=== PATIENT | male | born 1955 | race Caucasian/White ===

== ENCOUNTER 2016-06-28 13:06 | Inpatient (IN) | payer MEDICARE, MEDICAID ==
[~2016-06-28] VITALS: Ht 165.1 cm; Wt 79.8 kg
[~2016-06-28 13:06] MED LIST: ASPI325T2 PO; ATOR40TA70 PO; CALC667C PO; GABA-531 PO; INSLAN SQ; SEVE800T8 PO; ZOLP5TAB7 PO
[2016-06-28] MEDS ORDERED: ONDANSETRON HCL 4MG/2ML VIAL IV STA (15:01)
[2016-06-28] MEDS ORDERED: MORPHINE SULFATE 4 MG/ML CPJ (NOT FOR IM USE) IV STA (15:01)
[2016-06-28] MEDS ORDERED: SODIUM CHLORIDE 0.9% 1,000 ML IV ONE (15:01)
[2016-06-28 15:26] LABS: BASOPHILS % 0.6 % (0.0-2.0); HEMATOCRIT. 30.2 % (42.0-52.0); HEMOGLOBIN. 10.1 g/dL (14.0-18.0); LYMPHOCYTES % 20.8 % (20.0-50.0); MEAN CORPUSCULAR HEMOGLOBIN 31.4 pg (28.0-32.0); MEAN CORPUSCULAR HGB CONC 33.4 g/dL (31.0-37.0); MEAN CORPUSCULAR VOLUME 93.9 fL (80.0-94.0); MEAN PLATELET VOLUME 11.2 fl (7.4-10.4); MONOCYTES % 8.3 % (2.0-8.0); NEUTROPHILS % 69.3 % (40.0-76.0); PLATELET 69 x1000/uL (130-400); RED BLOOD CELL COUNT 3.22 mill/uL (4.7-6.1); RED CELL DISTRIBUTION WIDTH 19.4 % (11.6-14.6); WHITE BLOOD COUNT 6.6 x1000/uL (4.5-11.0)
[2016-06-28 15:32] LABS: INR 1.3; PARTIAL THROMBOPLASTIN TIME 29.9 sec (24.0-34.0); PROTHROMBIN TIME 13.9 sec
[2016-06-28 15:39] LABS: ALANINE AMINOTRANSFERASE 43 IU/L (13-61); ALBUMIN 3.7 g/dL (3.4-5.0); ANION GAP 17; CALCIUM 7.6 mg/dL (8.5-10.1); CARBON DIOXIDE 28 mEq/L (21-32); CHLORIDE 90 mEq/L (98-107); INDEX HEMOLYSI 1 (1-3); INDEX ICTERIC 1 (1-4); INDEX LIPEMIC 1 (1-3); LIPASE 280 IU/L (73-393); TROPONIN I 0.03 ng/mL (0.00-0.04); UREA NITROGEN BLOOD 43 mg/dL (7-21); eGFR 7 mL/min (>60)
[2016-06-28] MEDS ORDERED: ENOXAPARIN 40MG/0.4ML SYR SUBCUT SCH (17:45)
[2016-06-28] MEDS ORDERED: ONDANSETRON HCL 4MG/2ML VIAL IV PRN (17:45)
[2016-06-28] MEDS ORDERED: ACETAMINOPHEN 325MG TABLET PO PRN (17:45)
[2016-06-28] MEDS ORDERED: MORPHINE SULFATE 2 MG/ML CPJ (NOT FOR IM USE) IV PRN (17:45)
[2016-06-28] MEDS ORDERED: ZOLPIDEM TARTRATE 5MG TABLET PO PRN (17:45)
[2016-06-28] MEDS: CLONIDINE 0.1MG TABLET PO PRN (23:08)
[2016-06-29] VITALS (7 sets, daily range): BP systolic 124–183; BP diastolic 71–92
[2016-06-29 07:10] LABS: BASOPHILS % 0.9 % (0.0-2.0); EOSINOPHILS % 2.1 % (0.0-5.0); HEMATOCRIT. 27.7 % (42.0-52.0); HEMOGLOBIN. 9.3 g/dL (14.0-18.0); LYMPHOCYTES % 30.7 % (20.0-50.0); MEAN CORPUSCULAR HEMOGLOBIN 31.6 pg (28.0-32.0); MEAN CORPUSCULAR HGB CONC 33.7 g/dL (31.0-37.0); MEAN CORPUSCULAR VOLUME 93.8 fL (80.0-94.0); MEAN PLATELET VOLUME 12.1 fl (7.4-10.4); MONOCYTES % 8.1 % (2.0-8.0); NEUTROPHILS % 58.2 % (40.0-76.0); PLATELET 63 x1000/uL (130-400); RED BLOOD CELL COUNT 2.96 mill/uL (4.7-6.1); RED CELL DISTRIBUTION WIDTH 19.8 % (11.6-14.6); WHITE BLOOD COUNT 4.4 x1000/uL (4.5-11.0)
[2016-06-29 07:44] LABS: CALCIUM 7.2 mg/dL (8.5-10.1); MAGNESIUM 2.6 mg/dL (1.8-2.4); PHOSPHORUS 6.2 mg/dL (2.5-4.9); TROPONIN I 0.03 ng/mL (0.00-0.04)
[2016-06-29] MEDS: CLONIDINE 0.1MG TABLET PO PRN (09:01)
[2016-06-29] MEDS: AMLODIPINE 10MG TABLET PO SCH (11:22)
[2016-06-29] MEDS ORDERED: CLOP75TA33 PO (11:27)
[2016-06-29] MEDS: SEVELAMER CARBONATE 800 MG TABLET PO SCH ×2 (12:46→16:57)
[2016-06-29] MEDS ORDERED: ASPIRIN 81MG EC TABLET PO SCH (13:00)
[2016-06-29] MEDS ORDERED: GABAPENTIN 300MG CAPSULE PO SCH (21:00)
[2016-06-29] MEDS ORDERED: ATORVASTATIN CALCIUM 40MG TABLET PO SCH (21:00)
[2016-06-29] MEDS ORDERED: ZOLPIDEM TARTRATE 5MG TABLET PO PRN (21:00)
[2016-06-30] VITALS: BP 133/82
[2016-06-30 04:00] VITALS: BP 133/86
[2016-06-30 06:18] LABS: EOSINOPHILS % 1.7 % (0.0-5.0); HEMATOCRIT. 30.4 % (42.0-52.0); HEMOGLOBIN. 9.9 g/dL (14.0-18.0); LYMPHOCYTES % 28.6 % (20.0-50.0); MEAN CORPUSCULAR HEMOGLOBIN 30.5 pg (28.0-32.0); MEAN CORPUSCULAR HGB CONC 32.5 g/dL (31.0-37.0); MEAN CORPUSCULAR VOLUME 93.9 fL (80.0-94.0); MEAN PLATELET VOLUME 11.4 fl (7.4-10.4); MONOCYTES % 7.9 % (2.0-8.0); NEUTROPHILS % 60.8 % (40.0-76.0); PLATELET 63 x1000/uL (130-400); RED BLOOD CELL COUNT 3.24 mill/uL (4.7-6.1); RED CELL DISTRIBUTION WIDTH 20.4 % (11.6-14.6); WHITE BLOOD COUNT 4.8 x1000/uL (4.5-11.0)
[2016-06-30] MEDS ORDERED: DEXTROSE 50% WATER 50ML SYRINGE IV PRN (07:15)
[2016-06-30] MEDS: BLOOD SUGAR DIAGNOSTIC STRIP TEST SCH ×2 (07:20→12:31)
[2016-06-30] MEDS: INSULIN LISPRO 100 UNITS/ML SUBCUT SCH ×2 (07:21→12:31)
[2016-06-30] MEDS: SEVELAMER CARBONATE 800 MG TABLET PO SCH ×2 (07:24→12:31)
[2016-06-30 08:00] VITALS: BP 150/93
[2016-06-30 08:23] LABS: CALCIUM 7.7 mg/dL (8.5-10.1); CREATINE KINASE MB FRACTION 1.5 ng/mL (0.5-3.6); MAGNESIUM 2.5 mg/dL (1.8-2.4); TROPONIN I 0.03 ng/mL (0.00-0.04)
[2016-06-30 08:26] LABS: THYROID STIMULATING HORMONE 4.5 uIU/mL (0.36-3.74)
[2016-06-30] MEDS: AMLODIPINE 10MG TABLET PO SCH (09:06)
[2016-06-30 11:43] VITALS: BP 150/78
[2016-06-30 12:07] LABS: ALBUMIN 3.3 g/dL (3.4-5.0); BILIRUBIN DIRECT 0.8 mg/dL (0.0-0.2)
[2016-06-30 12:50] VITALS: BP 150/78
== END 2016-06-30 13:25 | disposition home or self-care (01) | DRG 438 ==
LOC: ER 13:53 → 8WST 17:44
PROVIDERS: ADMIT Internal Medicine Nephrology; ATTEND Internal Medicine Nephrology
PROC: 5A1D00Z (ICD-10-PCS; principal; 2016-06-29)
DX: K85.90 Acute pancreatitis without necrosis or infection, unspecified (principal); N18.6 End stage renal disease; I13.2 Hypertensive heart and chronic kidney disease with heart failure and with stage 5 chronic kidney disease, or end stage renal disease; R18.8 Other ascites; Z99.2 Dependence on renal dialysis; E11.22 Type 2 diabetes mellitus with diabetic chronic kidney disease; D69.6 Thrombocytopenia, unspecified; D63.1 Anemia in chronic kidney disease; E11.319 Type 2 diabetes mellitus with unspecified diabetic retinopathy without macular edema; E11.42 Type 2 diabetes mellitus with diabetic polyneuropathy; K52.9 Noninfective gastroenteritis and colitis, unspecified; E78.00 Pure hypercholesterolemia, unspecified; E78.5 Hyperlipidemia, unspecified; E83.39 Other disorders of phosphorus metabolism; I25.10 Atherosclerotic heart disease of native coronary artery without angina pectoris; I25.5 Ischemic cardiomyopathy; R09.89 Other specified symptoms and signs involving the circulatory and respiratory systems; I45.10 Unspecified right bundle-branch block; I50.9 Heart failure, unspecified; N32.89 Other specified disorders of bladder; N40.0 Benign prostatic hyperplasia without lower urinary tract symptoms; Z79.82 Long term (current) use of aspirin; Z79.899 Other long term (current) drug therapy; I25.2 Old myocardial infarction; Z87.891 Personal history of nicotine dependence; Z95.5 Presence of coronary angioplasty implant and graft; Z98.890 Other specified postprocedural states
CPT/HCPCS: 36415; 71010; 74176; 76705; 80048; 80053; 80061; 80076; 82550; 82553; 82962; 83036; 83690; 83735; 84100; 84443; 84484; 85025; 85379; 85610; 85730; 86850; 86900; 87040; 93005; 93970; 96361; 96374; 96375; 99285; J1815; J2270; J2405; J7030

== ENCOUNTER 2016-07-03 10:42 | Emergency (ER) | payer MEDICARE, MEDICAID ==
[~2016-07-03] VITALS: Ht 167.6 cm; Wt 84.0 kg
[~2016-07-03 10:42] MED LIST changes: -ASPI325T2 PO; +CLOP75TA33 PO; -ZOLP5TAB7 PO; +ZOLP5TAB8 PO
[2016-07-03] MEDS ORDERED: BACITRACIN ZINC OINT UDPKT TOP ONE (11:45)
[2016-07-03] MEDS ORDERED: CEPHALEXIN 500MG CAPSULE PO ONE (11:45)
[2016-07-03 12:12] VITALS: BP 171/77
== END 2016-07-03 12:15 | disposition home or self-care (01) ==
LOC: ER 11:30
DX: S90.822A Blister (nonthermal), left foot, initial encounter (principal); S90.821A Blister (nonthermal), right foot, initial encounter; E11.9 Type 2 diabetes mellitus without complications; I51.9 Heart disease, unspecified; I13.10 Hypertensive heart and chronic kidney disease without heart failure, with stage 1 through stage 4 chronic kidney disease, or unspecified chronic kidney disease; N18.9 Chronic kidney disease, unspecified; Z79.4 Long term (current) use of insulin; Z79.82 Long term (current) use of aspirin; Z79.899 Other long term (current) drug therapy; Z99.2 Dependence on renal dialysis; X58.XXXA Exposure to other specified factors, initial encounter; Y93.89 Activity, other specified; Y92.89 Other specified places as the place of occurrence of the external cause; Y99.8 Other external cause status
CPT/HCPCS: 99283

== ENCOUNTER 2016-07-25 05:05 | Emergency (ER) | payer MEDICARE, MEDICAID ==
[~2016-07-25] VITALS: Ht 172.7 cm; Wt 84.0 kg
[2016-07-25] MEDS ORDERED: COCAINE 4% TOPICAL SOLN 4ML TOP ONE (07:00)
[2016-07-25] MEDS ORDERED: SODIUM CHLORIDE 0.9% IV ONE (07:00)
[2016-07-25] MEDS ORDERED: DESMOPRESSIN ACETATE IV ONE (07:00)
[2016-07-25] MEDS ORDERED: SILVER NITRATE APPLICATOR STICK TOP ONE (07:00)
[2016-07-25 07:10] LABS: EOSINOPHILS % 1.1 % (0.0-5.0); HEMOGLOBIN. 10.5 g/dL (14.0-18.0); LYMPHOCYTES % 15.9 % (20.0-50.0); MEAN CORPUSCULAR HEMOGLOBIN 29.5 pg (28.0-32.0); MEAN CORPUSCULAR VOLUME 89.5 fL (80.0-94.0); MEAN PLATELET VOLUME 11.3 fl (7.4-10.4); MONOCYTES % 9.2 % (2.0-8.0); NEUTROPHILS % 72.8 % (40.0-76.0); PLATELET 94 x1000/uL (130-400); RED BLOOD CELL COUNT 3.57 mill/uL (4.7-6.1); RED CELL DISTRIBUTION WIDTH 19.9 % (11.6-14.6)
[2016-07-25 07:16] LABS: INR 1.4; PARTIAL THROMBOPLASTIN TIME 32.9 sec (24.0-34.0); PROTHROMBIN TIME 14.1 sec
[2016-07-25 07:35] LABS: CALCIUM 8.2 mg/dL (8.5-10.1)
[2016-07-25 13:53] VITALS: BP 191/83
== END 2016-07-25 13:56 | disposition home or self-care (01) ==
LOC: ER 09:43
DX: R04.0 Epistaxis (principal); I12.0 Hypertensive chronic kidney disease with stage 5 chronic kidney disease or end stage renal disease; N18.6 End stage renal disease; E11.9 Type 2 diabetes mellitus without complications; Z99.2 Dependence on renal dialysis
CPT/HCPCS: 30905; 36415; 71010; 80048; 85025; 85610; 85730; 96365; 99285; J2597

== ENCOUNTER 2016-08-30 13:13 | Inpatient (IN) | payer MEDICARE, MEDICAID ==
[~2016-08-30] VITALS: Ht 162.6 cm; Wt 82.1 kg
[~2016-08-30 13:13] MED LIST changes: +AMLO5TAB4 PO; +ASPI325T2 PO; +CINA90TA PO; +COR12 PO
[2016-08-30 17:07] LABS: BASOPHILS % 0.4 % (0.0-2.0); EOSINOPHILS % 0.4 % (0.0-5.0); HEMATOCRIT. 30.7 % (42.0-52.0); HEMOGLOBIN. 9.9 g/dL (14.0-18.0); MEAN CORPUSCULAR HEMOGLOBIN 29.8 pg (28.0-32.0); MEAN CORPUSCULAR VOLUME 91.9 fL (80.0-94.0); MEAN PLATELET VOLUME 11.1 fl (7.4-10.4); MONOCYTES % 7.8 % (2.0-8.0); NEUTROPHILS % 81.4 % (40.0-76.0); PLATELET 110 x1000/uL (130-400); RED BLOOD CELL COUNT 3.34 mill/uL (4.7-6.1); RED CELL DISTRIBUTION WIDTH 21.4 % (11.6-14.6)
[2016-08-30 17:18] LABS: CARBON DIOXIDE 29 mEq/L (21-32); CHLORIDE 90 mEq/L (98-107)
[2016-08-30 17:21] LABS: CLARITY URINE TURBID (CLEAR); COLOR URINE DARK YELLOW (YELLOW); GLUCOSE URINE NEGATIVE (NEGATIVE); KETONES URINE NEGATIVE (NEGATIVE); LEUKOCYTE ESTERASE URINE 2+ (NEGATIVE); NITRITE URINE POSITIVE (NEGATIVE); OCCULT BLOOD URINE 3+ (NEGATIVE); PROTEIN URINE 4+ (NEGATIVE); SPECIFIC GRAVITY URINE 1.033 (1.005-1.030); UROBILINOGEN URINE 0.2 E.U./dL (0.2-1.0)
[2016-08-30 17:21] LABS: INR 1.5; PROTHROMBIN TIME 15.8 sec
[2016-08-30] MEDS ORDERED: PIPERACILLIN/TAZOBACTAM 3.375GM/50ML PREMIX IV ONE (18:15)
[2016-08-30] MEDS ORDERED: DOCUSATE SODIUM 100MG CAPSULE PO PRN (18:30)
[2016-08-30] MEDS ORDERED: ACETAMINOPHEN 325MG TABLET PO PRN (18:30)
[2016-08-30] MEDS ORDERED: DEXTROSE 50% WATER 50ML SYRINGE IV PRN (18:30)
[2016-08-30] MEDS ORDERED: ONDANSETRON HCL 4MG/2ML VIAL IV PRN (18:30)
[2016-08-30] MEDS ORDERED: HYDROMORPHONE HCL/PF 2MG/ML CPJ IV PRN (18:30)
[2016-08-30] MEDS ORDERED: PIPERACILLIN/TAZ 3.375G PREMIX 50 ML IV NR (18:45)
[2016-08-30 20:40] VITALS: BP 187/79
[2016-08-30] MEDS: BLOOD SUGAR DIAGNOSTIC STRIP TEST SCH (21:00)
[2016-08-30] MEDS: INSULIN LISPRO 100 UNITS/ML SUBCUT SCH (21:00)
[2016-08-30] MEDS ORDERED: ZOLPIDEM TARTRATE 5MG TABLET PO PRN (21:45)
[2016-08-30] MEDS ORDERED: VANCOMYCIN IV NR (23:00)
[2016-08-30] MEDS ORDERED: WATER IV NR (23:00)
[2016-08-30] MEDS ORDERED: DEXT 5% IV NR (23:00)
[2016-08-30] MEDS ORDERED: AMLO10TA80 PO (23:25)
[2016-08-30] MEDS ORDERED: CINA60 PO (23:25)
[2016-08-30] MEDS ORDERED: LISI-604 PO (23:25)
[2016-08-30] MEDS ORDERED: ASPI-1035 PO (23:25)
[2016-08-31] VITALS (7 sets, daily range): BP systolic 136–188; BP diastolic 68–96
[2016-08-31] MEDS: SODIUM CHLORIDE 0.45% 1,000 ML IV SCH ×2 (00:18→18:00)
[2016-08-31] MEDS: CLONIDINE 0.1MG TABLET PO PRN (00:31)
[2016-08-31] MEDS ORDERED: AMLODIPINE 10MG TABLET PO NR (05:15)
[2016-08-31] MEDS: PIPERACILLIN/TAZ 2.25G PREMIX 50 ML IV SCH ×6 (05:27→22:24)
[2016-08-31] MEDS: BLOOD SUGAR DIAGNOSTIC STRIP TEST SCH ×4 (06:12→21:14)
[2016-08-31] MEDS: LISINOPRIL 20MG TABLET PO SCH (07:14)
[2016-08-31] MEDS: INSULIN LISPRO 100 UNITS/ML SUBCUT SCH ×4 (07:50→22:20)
[2016-08-31] MEDS: CALCIUM ACETATE 667MG CAPSULE PO SCH ×3 (08:50→18:09)
[2016-08-31] MEDS: PANTOPRAZOLE SODIUM 40 MG/VIAL IV SCH (08:50)
[2016-08-31] MEDS: CLOPIDOGREL 75MG TABLET PO SCH (08:51)
[2016-08-31] MEDS: SEVELAMER CARBONATE 800 MG TABLET PO SCH ×3 (08:51→18:09)
[2016-08-31] MEDS: CINACALCET HCL 60MG TABLET PO SCH (08:51)
[2016-08-31] MEDS: ASPIRIN 81MG EC TABLET PO SCH (08:51)
[2016-08-31] MEDS ORDERED: AMLODIPINE 10MG TABLET PO SCH (09:00)
[2016-08-31] MEDS ORDERED: INSULIN GLARGINE HUM REC ANLOG U SQ SCH (09:00)
[2016-08-31 09:27] LABS: BASOPHILS % 0.4 % (0.0-2.0); EOSINOPHILS % 0.1 % (0.0-5.0); LYMPHOCYTES % 10.5 % (20.0-50.0); MEAN CORPUSCULAR VOLUME 92.6 fL (80.0-94.0); MEAN PLATELET VOLUME 10.6 fl (7.4-10.4); MONOCYTES % 7.2 % (2.0-8.0); NEUTROPHILS % 81.8 % (40.0-76.0); PLATELET 110 x1000/uL (130-400); RED BLOOD CELL COUNT 3.35 mill/uL (4.7-6.1); RED CELL DISTRIBUTION WIDTH 21.1 % (11.6-14.6)
[2016-08-31 09:52] LABS: PHOSPHORUS 3.5 mg/dL (2.5-4.9); TROPONIN I 0.09 ng/mL (0.00-0.04)
[2016-08-31] MEDS ORDERED: INSULIN DETEMIR UD 100 UNITS/ML SYR SUBCUT SCH (10:00)
[2016-08-31] MEDS: INSULIN DETEMIR UD 100 UNITS/ML SYR SUBCUT SCH (11:18)
[2016-08-31] MEDS: ATORVASTATIN CALCIUM 40MG TABLET PO SCH (21:08)
[2016-08-31] MEDS: GABAPENTIN 300MG CAPSULE PO SCH (21:08)
[2016-08-31] MEDS ORDERED: LOPERAMIDE HCL 2MG CAPSULE PO NR (22:14)
[2016-09-01] VITALS (7 sets, daily range): BP systolic 115–162; BP diastolic 63–79
[2016-09-01] MEDS: SODIUM CHLORIDE 0.45% 1,000 ML IV SCH (06:34)
[2016-09-01] MEDS: PIPERACILLIN/TAZ 2.25G PREMIX 50 ML IV SCH ×2 (06:35→15:09)
[2016-09-01] MEDS: BLOOD SUGAR DIAGNOSTIC STRIP TEST SCH ×4 (06:39→20:24)
[2016-09-01] MEDS: INSULIN LISPRO 100 UNITS/ML SUBCUT SCH ×4 (06:43→20:30)
[2016-09-01] MEDS: PANTOPRAZOLE SODIUM 40 MG/VIAL IV SCH (09:06)
[2016-09-01] MEDS: LISINOPRIL 20MG TABLET PO SCH (09:07)
[2016-09-01] MEDS: CINACALCET HCL 60MG TABLET PO SCH (09:07)
[2016-09-01] MEDS: CALCIUM ACETATE 667MG CAPSULE PO SCH ×3 (09:07→17:10)
[2016-09-01] MEDS: SEVELAMER CARBONATE 800 MG TABLET PO SCH ×3 (09:07→17:11)
[2016-09-01] MEDS: CLOPIDOGREL 75MG TABLET PO SCH (09:07)
[2016-09-01] MEDS: ASPIRIN 81MG EC TABLET PO SCH (09:07)
[2016-09-01] MEDS: AMLODIPINE 10MG TABLET PO SCH (09:08)
[2016-09-01 09:11] LABS: BASOPHILS % 0.6 % (0.0-2.0); EOSINOPHILS % 0.2 % (0.0-5.0); HEMATOCRIT. 28.3 % (42.0-52.0); HEMOGLOBIN. 9.3 g/dL (14.0-18.0); LYMPHOCYTES % 11.1 % (20.0-50.0); MEAN CORPUSCULAR HEMOGLOBIN 30.5 pg (28.0-32.0); MEAN CORPUSCULAR VOLUME 93.1 fL (80.0-94.0); MEAN PLATELET VOLUME 10.7 fl (7.4-10.4); NEUTROPHILS % 80.1 % (40.0-76.0); PLATELET 97 x1000/uL (130-400); RED BLOOD CELL COUNT 3.04 mill/uL (4.7-6.1); RED CELL DISTRIBUTION WIDTH 21.1 % (11.6-14.6)
[2016-09-01] MEDS: INSULIN DETEMIR UD 100 UNITS/ML SYR SUBCUT SCH (11:02)
[2016-09-01] MEDS: AMOXICILLIN 500 MG CAPSULE PO SCH (20:22)
[2016-09-01] MEDS: ATORVASTATIN CALCIUM 40MG TABLET PO SCH (20:23)
[2016-09-01] MEDS: GABAPENTIN 300MG CAPSULE PO SCH (20:23)
[2016-09-02] VITALS: BP 128/69
[2016-09-02 06:06] LABS: BASOPHILS % 0.4 % (0.0-2.0); EOSINOPHILS % 0.6 % (0.0-5.0); HEMATOCRIT. 27.2 % (42.0-52.0); HEMOGLOBIN. 9.1 g/dL (14.0-18.0); LYMPHOCYTES % 10.5 % (20.0-50.0); MEAN CORPUSCULAR HEMOGLOBIN 30.7 pg (28.0-32.0); MEAN CORPUSCULAR VOLUME 92.1 fL (80.0-94.0); MEAN PLATELET VOLUME 10.7 fl (7.4-10.4); NEUTROPHILS % 80.5 % (40.0-76.0); PLATELET 106 x1000/uL (130-400); RED BLOOD CELL COUNT 2.95 mill/uL (4.7-6.1); RED CELL DISTRIBUTION WIDTH 20.9 % (11.6-14.6)
[2016-09-02] MEDS: BLOOD SUGAR DIAGNOSTIC STRIP TEST SCH ×4 (07:24→21:02)
[2016-09-02] MEDS: INSULIN LISPRO 100 UNITS/ML SUBCUT SCH ×4 (07:50→21:00)
[2016-09-02 08:00] VITALS: BP 124/70
[2016-09-02] MEDS: AMLODIPINE 10MG TABLET PO SCH (09:00)
[2016-09-02] MEDS: AMOXICILLIN 500 MG CAPSULE PO SCH (09:00)
[2016-09-02] MEDS: LISINOPRIL 20MG TABLET PO SCH (09:00)
[2016-09-02] MEDS: CINACALCET HCL 60MG TABLET PO SCH (09:18)
[2016-09-02] MEDS: PANTOPRAZOLE SODIUM 40 MG/VIAL IV SCH (09:18)
[2016-09-02] MEDS: SEVELAMER CARBONATE 800 MG TABLET PO SCH ×3 (09:18→18:20)
[2016-09-02] MEDS: CALCIUM ACETATE 667MG CAPSULE PO SCH ×3 (09:18→18:20)
[2016-09-02] MEDS: INSULIN DETEMIR UD 100 UNITS/ML SYR SUBCUT SCH (09:25)
[2016-09-02 11:52] VITALS: BP 155/76
[2016-09-02 16:00] VITALS: BP 169/93
[2016-09-02 20:00] VITALS: BP 188/89
[2016-09-02] MEDS: CLONIDINE 0.1MG TABLET PO PRN (20:22)
[2016-09-02] MEDS: ATORVASTATIN CALCIUM 40MG TABLET PO SCH (21:31)
[2016-09-02] MEDS: GABAPENTIN 300MG CAPSULE PO SCH (21:31)
[2016-09-03] VITALS: BP 172/82
[2016-09-03 04:00] VITALS: BP 122/70
[2016-09-03 04:23] LABS: OVA & PARASITE EXAM Final report (.)
[2016-09-03 05:33] LABS: BASOPHILS % 0.4 % (0.0-2.0); EOSINOPHILS % 0.4 % (0.0-5.0); HEMATOCRIT. 27.8 % (42.0-52.0); HEMOGLOBIN. 9.3 g/dL (14.0-18.0); LYMPHOCYTES % 11.2 % (20.0-50.0); MEAN CORPUSCULAR HEMOGLOBIN 30.8 pg (28.0-32.0); MEAN CORPUSCULAR VOLUME 91.6 fL (80.0-94.0); MEAN PLATELET VOLUME 10.2 fl (7.4-10.4); MONOCYTES % 9.9 % (2.0-8.0); NEUTROPHILS % 78.1 % (40.0-76.0); PLATELET 117 x1000/uL (130-400); RED BLOOD CELL COUNT 3.03 mill/uL (4.7-6.1); RED CELL DISTRIBUTION WIDTH 20.9 % (11.6-14.6)
[2016-09-03] MEDS: BLOOD SUGAR DIAGNOSTIC STRIP TEST SCH (06:20)
[2016-09-03 08:00] VITALS: BP 137/78
[2016-09-03] MEDS: AMLODIPINE 10MG TABLET PO SCH (08:39)
[2016-09-03] MEDS: CALCIUM ACETATE 667MG CAPSULE PO SCH (08:39)
[2016-09-03] MEDS: PANTOPRAZOLE SODIUM 40 MG/VIAL IV SCH (08:39)
[2016-09-03] MEDS: SEVELAMER CARBONATE 800 MG TABLET PO SCH (08:39)
[2016-09-03] MEDS: CINACALCET HCL 60MG TABLET PO SCH (08:40)
[2016-09-03] MEDS: LISINOPRIL 20MG TABLET PO SCH (08:40)
[2016-09-03] MEDS: INSULIN LISPRO 100 UNITS/ML SUBCUT SCH (08:41)
[2016-09-03] MEDS ORDERED: AMOXICILLIN 500 MG CAPSULE PO SCH (09:00)
[2016-09-03] MEDS: INSULIN DETEMIR UD 100 UNITS/ML SYR SUBCUT SCH (10:44)
[2016-09-03 11:08] VITALS: BP 137/78
== END 2016-09-03 11:45 | disposition home or self-care (01) | DRG 871 ==
LOC: ER 16:17 → 6WST 18:35
PROVIDERS: ADMIT Internal Medicine Nephrology; ATTEND Internal Medicine Nephrology
PROC: 5A1D60Z (ICD-10-PCS; principal; 2016-08-30)
DX: A41.9 Sepsis, unspecified organism (principal); N18.6 End stage renal disease; N39.0 Urinary tract infection, site not specified; I13.2 Hypertensive heart and chronic kidney disease with heart failure and with stage 5 chronic kidney disease, or end stage renal disease; J98.11 Atelectasis; K76.6 Portal hypertension; E87.5 Hyperkalemia; D63.1 Anemia in chronic kidney disease; B96.20 Unspecified Escherichia coli [E. coli] as the cause of diseases classified elsewhere; E11.22 Type 2 diabetes mellitus with diabetic chronic kidney disease; E11.51 Type 2 diabetes mellitus with diabetic peripheral angiopathy without gangrene; E78.00 Pure hypercholesterolemia, unspecified; E78.5 Hyperlipidemia, unspecified; I25.10 Atherosclerotic heart disease of native coronary artery without angina pectoris; I25.2 Old myocardial infarction; I25.5 Ischemic cardiomyopathy; I50.9 Heart failure, unspecified; K74.60 Unspecified cirrhosis of liver; R31.0 Gross hematuria; Z79.82 Long term (current) use of aspirin; Z79.899 Other long term (current) drug therapy; Z82.49 Family history of ischemic heart disease and other diseases of the circulatory system; Z83.3 Family history of diabetes mellitus; Z95.5 Presence of coronary angioplasty implant and graft; Z99.2 Dependence on renal dialysis; Z79.4 Long term (current) use of insulin
CPT/HCPCS: 36415; 51702; 70450; 71010; 74176; 80048; 80053; 81001; 82962; 83605; 83735; 83880; 84100; 84484; 85025; 85610; 87015; 87040; 87045; 87077; 87086; 87177; 87186; 87209; 87427; 87449; 87493; 93005; 93306; 93970; 96365; 97116; 97163; 97167; 97530; 97535; 99285; A6261; C9113; J1815; J2405; J2543; J3370; J7030; J7060; A4315

== ENCOUNTER 2016-10-18 09:01 | Emergency (ER) | payer MEDICARE, MEDICAID ==
[~2016-10-18] VITALS: Ht 165.1 cm; Wt 81.0 kg
[~2016-10-18 09:01] MED LIST changes: +AMLO10TA80 PO; -AMLO5TAB4 PO; +ASPI-1159 PO; -ASPI325T2 PO; +CINA60 PO; -CINA90TA PO; +LISI-604 PO
[2016-10-18 11:28] LABS: BASOPHILS % 0.9 % (0.0-2.0); EOSINOPHILS % 1.8 % (0.0-5.0); HEMATOCRIT. 29.1 % (42.0-52.0); HEMOGLOBIN. 9.8 g/dL (14.0-18.0); LYMPHOCYTES % 21.4 % (20.0-50.0); MEAN CORPUSCULAR HEMOGLOBIN 30.3 pg (28.0-32.0); MEAN PLATELET VOLUME 10.8 fl (7.4-10.4); MONOCYTES % 8.8 % (2.0-8.0); NEUTROPHILS % 67.1 % (40.0-76.0); PLATELET 138 x1000/uL (130-400); RED BLOOD CELL COUNT 3.23 mill/uL (4.7-6.1); RED CELL DISTRIBUTION WIDTH 19.3 % (11.6-14.6)
[2016-10-18 11:38] LABS: INR 2.4; PROTHROMBIN TIME 24.9 sec
[2016-10-18] MEDS ORDERED: ACETAMINOPHEN 325MG TABLET PO ONE (13:00)
[2016-10-18 13:17] VITALS: BP 149/73
== END 2016-10-18 13:58 | disposition home or self-care (01) ==
LOC: ER 10:13
DX: M25.552 Pain in left hip (principal); M25.551 Pain in right hip; R53.1 Weakness; W01.0XXA Fall on same level from slipping, tripping and stumbling without subsequent striking against object, initial encounter; Y93.9 Activity, unspecified; Y92.9 Unspecified place or not applicable; E11.22 Type 2 diabetes mellitus with diabetic chronic kidney disease; R03.0 Elevated blood-pressure reading, without diagnosis of hypertension; N18.6 End stage renal disease; Z99.2 Dependence on renal dialysis; Z79.82 Long term (current) use of aspirin; Z79.4 Long term (current) use of insulin
CPT/HCPCS: 36415; 71010; 72170; 80048; 83880; 85025; 85610; 99285